=== PATIENT | female | born 1965 | race Asian ===

== ENCOUNTER 2016-09-26 23:37 | Emergency (ER) | payer OTHER ==
[~2016-09-26] VITALS: Ht 157.5 cm; Wt 70.0 kg
[2016-09-27] MEDS ORDERED: IBUPROFEN 600MG TABLET PO ONE (02:00)
[2016-09-27 05:22] VITALS: BP 136/88
== END 2016-09-27 05:29 | disposition home or self-care (01) ==
LOC: ER 23:41
DX: M25.561 Pain in right knee (principal); M54.5 Low back pain; V43.52XA Car driver injured in collision with other type car in traffic accident, initial encounter; Y93.89 Activity, other specified; Y92.89 Other specified places as the place of occurrence of the external cause; Y99.8 Other external cause status
CPT/HCPCS: 71020; 72040; 72100; 73562; 81025; 93005; 99284